=== PATIENT | male | born 1985 | race American Indian/Alaskan Native ===

== ENCOUNTER 2020-09-10 23:54 | Emergency (ER) | payer OTHER ==
[2020-09-11 01:27] VITALS: BP 119/69
[2020-09-11] MEDS ORDERED: traMADol 50 MG TAB PO ONE (03:09)
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
== END 2020-09-11 03:44 | disposition home or self-care (01) ==
LOC: ED 23:54
DX: S16.1XXA Strain of muscle, fascia and tendon at neck level, initial encounter (principal); Z98.890 Other specified postprocedural states; Z79.899 Other long term (current) drug therapy; V49.69XA Unspecified car occupant injured in collision with other motor vehicles in traffic accident, initial encounter; Y93.89 Activity, other specified; Y92.410 Unspecified street and highway as the place of occurrence of the external cause; Y99.8 Other external cause status
CPT/HCPCS: 99282